=== PATIENT | female | born 1960 | race Hispanic/Latino ===

== ENCOUNTER 2021-10-14 18:21 | Emergency (ER) | payer MEDICARE ==
[~2021-10-14] VITALS: Ht 160 cm; Wt 83.5 kg
[~2021-10-14 18:21] MED LIST: ATORVASTATIN CA10 MG PO; CALTRATE 600 W1 EACH PO; ENBREL25 MG/0.5 SC; FOLIC ACID1 MG PO; METHOTREXATE2.5 MG PO
[2021-10-14] MEDS ORDERED: ONDANSETRON HCL INJ 2MG/ML 2ML 2 MG/ML VIAL IV NR (18:43)
[2021-10-14] MEDS ORDERED: SODIUM CHLORIDE 0.9% 1000ML 1,000 ML IV STA (18:43)
[2021-10-14] MEDS ORDERED: Morphine 4mg INJECTION 4 MG/ML INJ IV NR (19:00)
[2021-10-14 19:11] LABS: BASOPHILS % 0.3 % (0.0-1.0); EOSINOPHILS # (AUTO) 0.2 (0.0-0.4); EOSINOPHILS % 1.2 % (0.0-6.0); HEMATOCRIT 44.8 % (34.2-44.1); HEMOGLOBIN 14.7 g/dL (12.0-16.0); LYMPHOCYTES # (AUTO) 4.4 (1.0-3.2); LYMPHOCYTES % 33.7 % (18.0-39.1); MEAN CORPUSCULAR HEMOGLOBIN 31.2 pg (28-32); MEAN CORPUSCULAR HGB CONC 32.8 g/dL (31-35); MEAN CORPUSCULAR VOLUME 95.1 fL (81-99); MONOCYTES # (AUTO) 1.1 (0.2-0.8); MONOCYTES % 8.7 % (4.4-11.3); NEUTROPHILS # (AUTO) 7.3 (2.1-6.9); NEUTROPHILS % 55.9 % (38.7-80.0); PLATELET COUNT 282 x10e3/uL (140-360); RED BLOOD COUNT 4.71 x10e6/uL (3.6-5.1)
[2021-10-14] MEDS ORDERED: Morphine 4mg INJECTION 4 MG/ML INJ ONE (19:14)
[2021-10-14 19:15] LABS: CLARITY,URINE CLOUDY (CLEAR); COLOR,URINE AMBER (YELLOW); KETONES,URINE NEGATIVE (NEGATIVE); LEUKOCYTE ESTERASE ,URINE TRACE (NEGATIVE); NITRITE,URINE POSITIVE (NEGATIVE); PROTEIN,URINE DIPSTICK 1+ (NEGATIVE); URINE UROBILINOGEN 0.2 mg/dL (0.2 - 1)
[2021-10-14 19:24] LABS: BACTERIA,URINE MANY /HPF; EPITHELIAL CELLS,URINE FEW /LPF; RBC,URINE 0-5 /HPF (0-5)
[2021-10-14 19:36] LABS: ALBUMIN 3.6 g/dL (3.5-5.0); ALBUMIN/GLOBULIN RATIO 0.8 (0.8-2.0); CALCIUM 9.1 mg/dL (8.4-10.2); CREATININE, SERUM 0.74 mg/dL (0.57-1.11)
[2021-10-14] MEDS ORDERED: IOPAMIDOL 370 MG/ML 100 ML INFUS..BTL INJ ONE (19:55)
[2021-10-14] MEDS ORDERED: LOMOTIL TABLET1 EACH PO (20:53)
[2021-10-14] MEDS ORDERED: CIPRO500 MG PO (20:53)
[2021-10-14 21:08] VITALS: BP 119/62
== END 2021-10-14 21:09 | disposition home or self-care (01) ==
LOC: ER 18:42
DX: R10.33 Periumbilical pain (principal); N39.0 Urinary tract infection, site not specified; R19.7 Diarrhea, unspecified; Z20.822 Contact with and (suspected) exposure to COVID-19
CPT/HCPCS: 36415; 74177; 80053; 81001; 83690; 85025; 93005; 99284; J2270; J2405; J7030; Q9967; U0002

== ENCOUNTER 2022-01-25 16:45 | Emergency (ER) | payer MEDICARE, OTHER ==
[~2022-01-25] VITALS: Ht 160 cm; Wt 83.5 kg
[~2022-01-25 16:45] MED LIST changes: +CIPRO500 MG PO; +LOMOTIL TABLET1 EACH PO
[2022-01-25] MEDS ORDERED: KETOROLAC TROMETHAMINE 60 MG/2 ML VIAL IM ONE (18:15)
[2022-01-25] MEDS ORDERED: NAPROSYN500 MG PO (20:05)
[2022-01-25] MEDS ORDERED: CYCLOBENZAPRINE5 MG PO (20:05)
== END 2022-01-25 20:10 | disposition home or self-care (01) ==
LOC: ER 17:02
DX: S16.1XXA Strain of muscle, fascia and tendon at neck level, initial encounter (principal); S20.213A Contusion of bilateral front wall of thorax, initial encounter; V43.52XA Car driver injured in collision with other type car in traffic accident, initial encounter; Y92.488 Other paved roadways as the place of occurrence of the external cause; E78.5 Hyperlipidemia, unspecified; F17.210 Nicotine dependence, cigarettes, uncomplicated
CPT/HCPCS: 71046; 72040; 93005; 99283; J1885

== ENCOUNTER 2023-09-16 19:14 | Inpatient (IN) | payer MEDICARE, OTHER ==
[~2023-09-16] VITALS: Ht 154.9 cm; Wt 81.6 kg
[~2023-09-16 19:14] MED LIST changes: +CYCLOBENZAPRINE5 MG PO; +NAPROSYN500 MG PO
[2023-09-16] MEDS: ASPIRIN 81 MG CHEW TAB PO ONE ×2 (19:36→21:07)
[2023-09-16] MEDS ORDERED: ONDANSETRON HCL INJ 2MG/ML 2ML 2 MG/ML VIAL ONE (20:12)
[2023-09-16] MEDS ORDERED: ONDANSETRON HCL INJ 2MG/ML 2ML 2 MG/ML VIAL IV PRN (20:45)
[2023-09-16 21:30] VITALS: PULSE 71; RESP 18; TEMP 98
[2023-09-16] MEDS: ONDANSETRON HCL INJ 2MG/ML 2ML 2 MG/ML VIAL IV STA (21:30)
[2023-09-16 22:00] VITALS: BP 110/62; PULSE 70; RESP 18; TEMP 98; O2SAT 100
[2023-09-17] VITALS (8 sets, daily range): BP systolic 112–128; BP diastolic 57–70; PULSE 67–76; RESP 17–18; TEMP 97.8–98.2; O2SAT 96–100
[2023-09-17] MEDS ORDERED: FOLIC ACID0.4 MG PO (00:47)
[2023-09-17] MEDS ORDERED: NEURONTIN100 MG PO (00:49)
[2023-09-17] MEDS ORDERED: OMEPRAZOLE40 MG PO (00:53)
[2023-09-17] MEDS ORDERED: SOMA350 MG PO (00:56)
[2023-09-17 07:05] LABS: CHOL/HDL RATIO 6.7 (3.0-3.6)
[2023-09-17 07:11] LABS: TROPONIN I 0.015 ng/mL (0-0.300)
[2023-09-17] MEDS: ASPIRIN 325 MG TAB EC PO SCH (09:04)
[2023-09-17] MEDS: ASPIRIN 81 MG ENTERIC COATED PO SCH (11:30)
[2023-09-17] MEDS: FUROSEMIDE INJ 10 MG/ML 4 ML VIAL IV ONE (12:41)
[2023-09-17] MEDS: POTASSIUM CHLORIDE 10MEQ EA PO ONE (12:43)
[2023-09-17] MEDS ORDERED: IOPAMIDOL 370 MG/ML 100 ML INFUS..BTL INJ ONE (12:59)
[2023-09-17 13:25] LABS: TROPONIN I 0.019 ng/mL (0-0.300)
[2023-09-17] MEDS: ATORVASTATIN 10 MG TAB PO SCH (20:57)
[2023-09-18] VITALS (9 sets, daily range): BP systolic 117–133; BP diastolic 57–83; PULSE 72–92; RESP 17–18; TEMP 97.9–98.5; O2SAT 92–100
[2023-09-18] MEDS: ACETAMINOPHEN 325 MG TAB PO PRN (05:56)
[2023-09-18 06:13] LABS: BASOPHILS # (AUTO) 0.1 (0.0-0.1); BASOPHILS % 0.8 % (0.0-1.0); EOSINOPHILS # (AUTO) 0.3 (0.0-0.4); EOSINOPHILS % 2.9 % (0.0-6.0); HEMOGLOBIN 12.2 g/dL (12.0-16.0); LYMPHOCYTES % 32.4 % (18.0-39.1); MEAN CORPUSCULAR HGB CONC 31.3 g/dL (31-35); MEAN CORPUSCULAR VOLUME 95.8 fL (81-99); MONOCYTES # (AUTO) 0.8 (0.2-0.8); MONOCYTES % 8.8 % (4.4-11.3); NEUTROPHILS # (AUTO) 5.1 (2.1-6.9); NEUTROPHILS % 54.8 % (38.7-80.0); PLATELET COUNT 265 x10e3/uL (140-360); RED BLOOD COUNT 4.07 x10e6/uL (3.6-5.1); RED CELL DISTRIBUTION WIDTH 14.4 % (11.7-14.4); WHITE BLOOD COUNT 9.33 x10e3/uL (4.8-10.8)
[2023-09-18 06:32] LABS: ALBUMIN 3.2 g/dL (3.5-5.0); ALBUMIN/GLOBULIN RATIO 0.9 (0.8-2.0); BILIRUBIN,TOTAL 0.3 mg/dL (0.2-1.2); CHOL/HDL RATIO 5.8 (3.0-3.6); CREATININE, SERUM 0.94 mg/dL (0.57-1.11); POTASSIUM 4.8 mmol/L (3.5-5.1); TOTAL PROTEIN 6.8 g/dL (6.5-8.1)
[2023-09-18 06:45] LABS: THYROID STIMULATING HORMONE 0.931 uIU/mL (0.350-4.940)
[2023-09-18 08:13] LABS: CALCIUM 10.1 mg/dL (8.4-10.2)
[2023-09-18] MEDS: FOLIC ACID 1 MG TAB PO SCH (09:54)
[2023-09-18] MEDS: PANTOPRAZOLE SOD 40 MG TABEC PO SCH (09:54)
[2023-09-18] MEDS: FUROSEMIDE INJ 10 MG/ML 4 ML VIAL IV SCH (09:55)
[2023-09-18] MEDS: POTASSIUM CHLORIDE 10MEQ EA PO SCH (09:55)
[2023-09-18] MEDS: ALBUTEROL/IPRATROPIUM 3 ML NEB NEB SCH (10:30)
[2023-09-18] MEDS ORDERED: ALBUTEROL/IPRATROPIUM 3 ML NEB NEB PRN (10:30)
[2023-09-18 10:55] LABS: ANION GAP 14.8 mmol/L (8-16)
[2023-09-18] MEDS: AZITHROMYCIN 250 MG TAB PO ONE (12:32)
[2023-09-18] MEDS: ENOXAPARIN SOD INJ 40 MG/0.4 ML SYR SC SCH (18:01)
[2023-09-19] VITALS (10 sets, daily range): BP systolic 126–148; BP diastolic 67–84; PULSE 75–88; RESP 17–18; TEMP 98–98.5; O2SAT 95–100
[2023-09-19] MEDS: SODIUM CHLORIDE 0.9% 250ML 250 ML ONE (09:12)
[2023-09-19] MEDS: AZITHROMYCIN 250 MG TAB PO SCH (09:25)
[2023-09-19 10:18] LABS: CALCIUM 9.4 mg/dL (8.4-10.2); CREATININE, SERUM 0.85 mg/dL (0.57-1.11)
[2023-09-19] MEDS ORDERED: REGADENOSON 0.4 MG/5 ML SYR IV ONE (14:53)
== END 2023-09-19 18:34 | disposition home or self-care (01) | DRG 291 ==
LOC: FSED 19:17 → ERHOLD 20:46 → MED/SURG3 22:07 → OBSVTOIN 09-18 12:23
PROVIDERS: ADMIT Internal Medicine; ATTEND Internal Medicine
DX: I11.0 Hypertensive heart disease with heart failure (principal); I50.33 Acute on chronic diastolic (congestive) heart failure; J20.9 Acute bronchitis, unspecified; J45.909 Unspecified asthma, uncomplicated; E87.8 Other disorders of electrolyte and fluid balance, not elsewhere classified; E78.5 Hyperlipidemia, unspecified; K21.9 Gastro-esophageal reflux disease without esophagitis; E66.9 Obesity, unspecified; Z68.34 Body mass index [BMI] 34.0-34.9, adult; M54.50 Low back pain, unspecified; M19.90 Unspecified osteoarthritis, unspecified site; Z79.620 Long term (current) use of immunosuppressive biologic; Z79.69 Long term (current) use of other immunomodulators and immunosuppressants
CPT/HCPCS: 36415; 71046; 71260; 78452; 80048; 80053; 80061; 82550; 82948; 83880; 84443; 84484; 85025; 87040; 93005; 93017; 93306; 93970; 94640; 94799; 99284; A9502; G0378; J0696; J1650; J1940; J2405; J2470; J7050; Q9967; U0002

== ENCOUNTER 2024-04-16 20:32 | Emergency (ER) | payer MEDICARE ==
[~2024-04-16] VITALS: Ht 162.6 cm; Wt 79.4 kg
[~2024-04-16 20:32] MED LIST changes: +FOLIC ACID0.4 MG PO; +NEURONTIN100 MG PO; +OMEPRAZOLE40 MG PO; +SOMA350 MG PO
[2024-04-16] MEDS: Morphine 4mg INJECTION 4 MG/ML INJ IV ONE (21:20)
[2024-04-16] MEDS ORDERED: IOPAMIDOL 370 MG/ML 100 ML INFUS..BTL INJ ONE (21:26)
[2024-04-16 21:33] LABS: BASOPHILS % 0.2 % (0.0-1.0); EOSINOPHILS # (AUTO) 0.1 (0.0-0.4); EOSINOPHILS % 0.5 % (0.0-6.0); HEMATOCRIT 37.9 % (34.2-44.1); HEMOGLOBIN 12.4 g/dL (12.0-16.0); LYMPHOCYTES # (AUTO) 3.3 (1.0-3.2); LYMPHOCYTES % 19.7 % (18.0-39.1); MEAN CORPUSCULAR HEMOGLOBIN 29.5 pg (28-32); MEAN CORPUSCULAR HGB CONC 32.7 g/dL (31-35); MEAN CORPUSCULAR VOLUME 90.2 fL (81-99); MONOCYTES # (AUTO) 1.5 (0.2-0.8); MONOCYTES % 8.6 % (4.4-11.3); NEUTROPHILS # (AUTO) 11.9 (2.1-6.9); NEUTROPHILS % 70.7 % (38.7-80.0); PLATELET COUNT 224 x10e3/uL (140-360); WHITE BLOOD COUNT 16.88 x10e3/uL (4.8-10.8)
[2024-04-16] MEDS ORDERED: AMOX TR-K CLV1 EAC2 PO (23:21)
[2024-04-16] MEDS ORDERED: HYDROCODON-ACE1 EA11 PO (23:22)
[2024-04-16 23:35] VITALS: BP 117/56; PULSE 83; RESP 18; TEMP 98.6; O2SAT 96
== END 2024-04-16 23:35 | disposition home or self-care (01) ==
LOC: FSED 20:37
DX: R10.30 Lower abdominal pain, unspecified (principal); K57.32 Diverticulitis of large intestine without perforation or abscess without bleeding; E78.5 Hyperlipidemia, unspecified; K76.0 Fatty (change of) liver, not elsewhere classified
CPT/HCPCS: 36415; 74177; 80053; 85025; 96374; 99284; J2270; Q9967

== ENCOUNTER 2024-04-19 18:13 | Inpatient (IN) | payer MEDICARE ==
[~2024-04-19] VITALS: Ht 162.6 cm; Wt 79.4 kg
[2024-04-19] VITALS (7 sets, daily range): BP systolic 102–114; BP diastolic 63–68; PULSE 68–89; RESP 14–18; TEMP 97–99.1; O2SAT 95–97
[~2024-04-19 18:13] MED LIST changes: +AMOX TR-K CLV1 EAC2 PO; +HYDROCODON-ACE1 EA11 PO
[2024-04-19] MEDS ORDERED: Morphine 4mg INJECTION 4 MG/ML INJ IV PRN (18:30)
[2024-04-19] MEDS ORDERED: ONDANSETRON HCL INJ 2MG/ML 2ML 2 MG/ML VIAL IV PRN (18:30)
[2024-04-19] MEDS ORDERED: IOPAMIDOL 370 MG/ML 100 ML INFUS..BTL INJ ONE (18:33)
[2024-04-19 18:36] LABS: BASOPHILS % 0.3 % (0.0-1.0); EOSINOPHILS # (AUTO) 0.2 (0.0-0.4); EOSINOPHILS % 1.9 % (0.0-6.0); HEMOGLOBIN 13.1 g/dL (12.0-16.0); LYMPHOCYTES # (AUTO) 2.5 (1.0-3.2); LYMPHOCYTES % 25.9 % (18.0-39.1); MEAN CORPUSCULAR HEMOGLOBIN 29.5 pg (28-32); MEAN CORPUSCULAR HGB CONC 32.8 g/dL (31-35); MEAN CORPUSCULAR VOLUME 90.1 fL (81-99); MONOCYTES # (AUTO) 0.5 (0.2-0.8); MONOCYTES % 5.6 % (4.4-11.3); NEUTROPHILS # (AUTO) 6.4 (2.1-6.9); NEUTROPHILS % 65.9 % (38.7-80.0); PLATELET COUNT 290 x10e3/uL (140-360); RED BLOOD COUNT 4.44 x10e6/uL (3.6-5.1); RED CELL DISTRIBUTION WIDTH 14.1 % (11.7-14.4); WHITE BLOOD COUNT 9.72 x10e3/uL (4.8-10.8)
[2024-04-19] MEDS: Morphine 4mg INJECTION 4 MG/ML INJ IV STA (18:40)
[2024-04-19] MEDS: ONDANSETRON HCL INJ 2MG/ML 2ML 2 MG/ML VIAL IV STA (18:41)
[2024-04-19] MEDS: SODIUM CHLORIDE 0.9% 1000ML 1,000 ML IV STA (18:41)
[2024-04-19 19:01] LABS: ALBUMIN 3.1 g/dL (3.5-5.0); ALBUMIN/GLOBULIN RATIO 0.7 (0.8-2.0); ANION GAP 15.9 mmol/L (8-16); BILIRUBIN,TOTAL 0.7 mg/dL (0.2-1.2); CALCIUM 9.6 mg/dL (8.4-10.2); CREATININE, SERUM 0.89 mg/dL (0.57-1.11); POTASSIUM 3.9 mmol/L (3.5-5.1); TOTAL PROTEIN 7.8 g/dL (6.5-8.1)
[2024-04-19 19:07] LABS: TROPONIN I 0.004 ng/mL (0-0.300)
[2024-04-19] MEDS ORDERED: ZETIA10 MG PO (20:59)
[2024-04-19] MEDS ORDERED: ROSUVASTATIN CAL5 MG (21:00)
[2024-04-19] MEDS ORDERED: SIMPONI AR50 MG/4 ML (21:01)
[2024-04-19] MEDS: DIPHENHYDRAMINE HCL 25 MG CAP PO ONE (22:28)
[2024-04-19] MEDS ORDERED: ACETAMINOPHEN 325 MG TAB PO PRN (22:30)
[2024-04-19] MEDS ORDERED: FAMOTIDINE 20 MG TAB PO PRN ×2 (22:30)
[2024-04-19] MEDS ORDERED: ONDANSETRON HCL 4 MG ORAL DISINTEGRATING TAB PO PRN (22:30)
[2024-04-19] MEDS ORDERED: HYDRALAZINE HCL 20 MG/ML VIAL IV PRN (22:30)
[2024-04-20] VITALS: BP 109/70; PULSE 77; RESP 16; TEMP 98; O2SAT 95
[2024-04-20] MEDS: SODIUM CHLORIDE 0.9% 1000ML 1,000 ML IV SCH (02:03)
[2024-04-20 05:40] LABS: BASOPHILS % 0.3 % (0.0-1.0); EOSINOPHILS # (AUTO) 0.2 (0.0-0.4); EOSINOPHILS % 2.6 % (0.0-6.0); HEMATOCRIT 36.2 % (34.2-44.1); HEMOGLOBIN 11.7 g/dL (12.0-16.0); LYMPHOCYTES # (AUTO) 3.1 (1.0-3.2); LYMPHOCYTES % 35.4 % (18.0-39.1); MEAN CORPUSCULAR HEMOGLOBIN 29.3 pg (28-32); MEAN CORPUSCULAR HGB CONC 32.3 g/dL (31-35); MEAN CORPUSCULAR VOLUME 90.7 fL (81-99); MONOCYTES # (AUTO) 0.7 (0.2-0.8); NEUTROPHILS # (AUTO) 4.8 (2.1-6.9); NEUTROPHILS % 53.5 % (38.7-80.0); PLATELET COUNT 258 x10e3/uL (140-360); RED BLOOD COUNT 3.99 x10e6/uL (3.6-5.1); RED CELL DISTRIBUTION WIDTH 14.2 % (11.7-14.4); WHITE BLOOD COUNT 8.88 x10e3/uL (4.8-10.8)
[2024-04-20 06:18] VITALS: BP 122/59; PULSE 67; RESP 15; TEMP 98.2; O2SAT 96
[2024-04-20 06:49] LABS: CREATINE KINASE 161 IU/L (29-168)
[2024-04-20 06:51] LABS: ALBUMIN 2.6 g/dL (3.5-5.0); ALBUMIN/GLOBULIN RATIO 0.7 (0.8-2.0); ANION GAP 14.1 mmol/L (8-16); BILIRUBIN,TOTAL 0.6 mg/dL (0.2-1.2); CALCIUM 8.9 mg/dL (8.4-10.2); CREATININE, SERUM 0.82 mg/dL (0.57-1.11); POTASSIUM 4.1 mmol/L (3.5-5.1); TOTAL PROTEIN 6.6 g/dL (6.5-8.1)
[2024-04-20 06:57] LABS: TROPONIN I < 0.001 ng/mL (0-0.300)
[2024-04-20 08:26] LABS: ALBUMIN 2.7 g/dL (3.5-5.0); BILIRUBIN,DIRECT 0.3 mg/dL (0.0-0.5); BILIRUBIN,TOTAL 0.6 mg/dL (0.2-1.2); TOTAL PROTEIN 6.7 g/dL (6.5-8.1)
[2024-04-20 08:30] VITALS: BP 123/57; PULSE 59; RESP 19; TEMP 98.3; O2SAT 97
[2024-04-20] MEDS: HYDROXYZINE HCL 25 MG TAB PO PRN (10:37)
[2024-04-20 12:03] VITALS: BP 126/58; PULSE 58; RESP 18; TEMP 98.3; O2SAT 99
[2024-04-20 14:15] LABS: TROPONIN I 0.002 ng/mL (0-0.300)
[2024-04-20 16:38] VITALS: BP 120/57; PULSE 58; RESP 19; TEMP 98.7; O2SAT 98
[2024-04-20 20:00] VITALS: BP 111/58; PULSE 64; RESP 18; TEMP 98.2; O2SAT 95
[2024-04-20 23:22] LABS: BILIRUBIN,URINE NEGATIVE (NEGATIVE); CLARITY,URINE CLEAR (CLEAR); COLOR,URINE YELLOW (YELLOW); GLUCOSE, URINE NEGATIVE (NEGATIVE); KETONES,URINE NEGATIVE (NEGATIVE); LEUKOCYTE ESTERASE ,URINE NEGATIVE (NEGATIVE); NITRITE,URINE NEGATIVE (NEGATIVE); PH,URINE 5.5 (5 - 7); PROTEIN,URINE DIPSTICK NEGATIVE (NEGATIVE); URINE UROBILINOGEN 0.2 mg/dL (0.2 - 1)
[2024-04-21] VITALS (9 sets, daily range): BP systolic 108–127; BP diastolic 51–68; PULSE 59–68; RESP 16–18; TEMP 97.4–98.4; O2SAT 98–100
[2024-04-21 00:18] LABS: EPITHELIAL CELLS,URINE FEW /LPF; RBC,URINE 0-5 /HPF (0-5); WBC,URINE (MAN) 0-5 /HPF (0-5)
[2024-04-21 00:19] LABS: BACTERIA,URINE MODERATE /HPF
[2024-04-21 07:46] LABS: BASOPHILS % 0.2 % (0.0-1.0); EOSINOPHILS # (AUTO) 0.2 (0.0-0.4); EOSINOPHILS % 2.3 % (0.0-6.0); HEMATOCRIT 37.6 % (34.2-44.1); HEMOGLOBIN 12.2 g/dL (12.0-16.0); LYMPHOCYTES # (AUTO) 3.3 (1.0-3.2); LYMPHOCYTES % 40.2 % (18.0-39.1); MEAN CORPUSCULAR HEMOGLOBIN 29.4 pg (28-32); MEAN CORPUSCULAR HGB CONC 32.4 g/dL (31-35); MEAN CORPUSCULAR VOLUME 90.6 fL (81-99); MONOCYTES # (AUTO) 0.7 (0.2-0.8); MONOCYTES % 8.8 % (4.4-11.3); NEUTROPHILS # (AUTO) 3.9 (2.1-6.9); NEUTROPHILS % 48.3 % (38.7-80.0); PLATELET COUNT 280 x10e3/uL (140-360); RED BLOOD COUNT 4.15 x10e6/uL (3.6-5.1); RED CELL DISTRIBUTION WIDTH 14.1 % (11.7-14.4)
[2024-04-21 07:58] LABS: ALBUMIN 2.8 g/dL (3.5-5.0); ALBUMIN/GLOBULIN RATIO 0.7 (0.8-2.0); ANION GAP 17.5 mmol/L (8-16); BILIRUBIN,TOTAL 0.6 mg/dL (0.2-1.2); CREATININE, SERUM 0.78 mg/dL (0.57-1.11); POTASSIUM 3.5 mmol/L (3.5-5.1); TOTAL PROTEIN 6.9 g/dL (6.5-8.1)
[2024-04-22 04:00] VITALS: BP 134/56; PULSE 62; RESP 17; TEMP 97.8; O2SAT 98
[2024-04-22 06:16] LABS: ALBUMIN/GLOBULIN RATIO 0.7 (0.8-2.0); ANION GAP 15.7 mmol/L (8-16); BILIRUBIN,TOTAL 0.5 mg/dL (0.2-1.2); CALCIUM 9.1 mg/dL (8.4-10.2); CREATININE, SERUM 0.77 mg/dL (0.57-1.11); POTASSIUM 3.7 mmol/L (3.5-5.1); TOTAL PROTEIN 7.1 g/dL (6.5-8.1)
[2024-04-22 08:00] VITALS: BP 134/56; PULSE 62; RESP 17; TEMP 97.8; O2SAT 98
[2024-04-22 11:38] VITALS: BP 108/76; PULSE 71; RESP 17; TEMP 97.8; O2SAT 100
== END 2024-04-22 12:52 | disposition home or self-care (01) | DRG 392 ==
LOC: ER 18:17 → ERHOLD 18:18 → MED/SURG2 19:58
PROVIDERS: ADMIT Family Medicine Adult Medicine; ATTEND Family Medicine Adult Medicine
DX: K57.32 Diverticulitis of large intestine without perforation or abscess without bleeding (principal); I50.32 Chronic diastolic (congestive) heart failure; I11.0 Hypertensive heart disease with heart failure; E78.5 Hyperlipidemia, unspecified; K76.0 Fatty (change of) liver, not elsewhere classified; R94.4 Abnormal results of kidney function studies; K21.9 Gastro-esophageal reflux disease without esophagitis; M06.9 Rheumatoid arthritis, unspecified; I35.0 Nonrheumatic aortic (valve) stenosis; F17.200 Nicotine dependence, unspecified, uncomplicated; Z90.49 Acquired absence of other specified parts of digestive tract; Z79.899 Other long term (current) drug therapy
CPT/HCPCS: 36415; 74177; 80053; 80076; 81001; 82550; 83690; 84484; 85025; 87086; 93005; 99252; 99284; J2270; J2405; J2543; J3410; J7030; Q9967